=== PATIENT | male | born 2000 | race Two or more races ===

== ENCOUNTER → 2025-05-07 | Emergency (ER) | payer OTHER ==
[~2025-05-07] VITALS: Ht 177.8 cm; Wt 104.3 kg
[~2025-05-07] MED LIST: CEFTRIAXONE SODIUM 1,000 MG VIAL IM STA; CEFTRIAXONE SODIUM 1,000 MG VIAL ONE; COZAAR25 MG PO; DIPHTH,PERTUSS(ACELL),TET VAC 0.5 ML SYRINGE IM ONE; HYDROGEN PEROXIDE 473 ML BOTTLE TOP ONE; LIDOCAINE HCL 1% 10ML VIAL ONE; POVIDONE-IODINE 118 ML BOTT TOP ONE; TETANUS & DIPHTHERIA TOX,ADULT 0.5 ML VIAL IM ONE
[2025-05-07 06:19] VITALS: BP 142/82; O2SAT 96
== END | disposition home or self-care (01) ==
LOC: ER 06:16
DX: S81.822A Laceration with foreign body, left lower leg, initial encounter (principal); W10.0XXA Fall (on)(from) escalator, initial encounter; Y93.89 Activity, other specified; Y92.89 Other specified places as the place of occurrence of the external cause; I10 Essential (primary) hypertension; S01.82XA Laceration with foreign body of other part of head, initial encounter; S71.122A Laceration with foreign body, left thigh, initial encounter
CPT/HCPCS: 12002; 90471; 90714; J1670